=== PATIENT | female | born 1990 | race Caucasian/White ===

== ENCOUNTER 2017-02-06 07:54 | Inpatient (IN) | payer OTHER ==
[2017-01-29 14:14] VITALS: BMI 24.5
--- NOTE | 2017-01-30 11:59 | HP ---
Admitting History and Physical - Primary Care Physician PCP: Wilman Dent - Admission Chief Complaint: High risk for breast cancer History of Present Illness: 26 yo female presents as high risk for breast cancer secondary to personal h/o BRCA 1 positive status and family h/o breast cancer. Patient had a normal MRI done 01/10/2017. Patient is presenting for prophylactic mastectomy with reconstruction. History Source: Patient Limitations to Obtaining History: No Limitations - Past Medical History ...LMP: 01/08/17 Additional Past Medical History: Parietal venous malformation Right ocular ptosis (1995) - Past Surgical History Additional Past Surgical History: correction of right ocular ptosis () percutaneous endovascular microcatheterization (2014) - Smoking History Smoking history: Never smoked Have you smoked in the past 12 months: No - Alcohol/Substance Use Hx Alcohol Use: Yes (4/WEEK) Home Medications - Allergies Allergies/Adverse Reactions: Allergies Allergy/AdvReac Type Severity Reaction Status Date / Time No Known Drug Allergies Allergy Verified 01/29/17 14:02 - Home Medications Home Medications: Ambulatory Orders Fexofenadine HCl [Sofya Allergy] 60 mg PO DAILY 01/29/17 Multivitamins [Tab-A-Vit -] 1 tab PO DAILY 01/29/17 Norethindrone-Ethinyl Estrad [Alyacen] 1 each PO HS 01/29/17 Family Disease History - Family Disease History Family Disease History: CA: Sister (breast cancer and BRCA 1 pos), Other: Father (BRCA 1 pos) Other Family History: maternal GM (breast cancer 40s). paternal GM (breast cancer 60s) Review of Systems - Review of Systems Constitutional: reports: No Symptoms Cardiovascular: reports: No Symptoms Respiratory: reports: No Symptoms Physical Examination Constitutional: Yes: Well Nourished, Calm Breast(s): Yes: Other (C-cup breasts without skin changes or nipple discharge. No suspicious palpable masses or adenopathy noted bilaterally.) Problem List - Problems (1) At high risk for breast cancer Code(s): Z91.89 - [facility] PERSONAL RISK FACTORS, NOT ELSEWHERE CLASSIFIED (2) Family history of breast cancer Code(s): Z80.3 - FAMILY HISTORY OF MALIGNANT NEOPLASM OF BREAST (3) BRCA gene mutation positive in female Code(s): Z15.01 - GENETIC SUSCEPTIBILITY TO MALIGNANT NEOPLASM OF BREAST Z15.02 - GENETIC SUSCEPTIBILITY TO MALIGNANT NEOPLASM OF OVARY Z15.09 - GENETIC SUSCEPTIBILITY TO OTHER MALIGNANT NEOPLASM Assessment/Plan Plan Bilateral mastectomy with immediate reconstruction
[2017-02-06] MEDS ORDERED: PROPOFOL 20 ML ONE ×2 (08:37→10:37)
[2017-02-06] MEDS ORDERED: SUCCINYLCHOLINE CHLORIDE 200 MG/10 ML VIAL ONE (08:38)
[2017-02-06] MEDS ORDERED: MIDAZOLAM HCL 2 MG/2 ML SINGLE DOSE VIAL ONE ×2 (08:38→15:26)
[2017-02-06] MEDS ORDERED: ZOLPIDEM TARTRATE 5 MG TABLET PO PRN (09:21)
[2017-02-06] MEDS ORDERED: ONDANSETRON 4 MG/2 ML VIAL IVPB PRN (09:21)
[2017-02-06] MEDS ORDERED: ROPIVACAINE HCL 0.5% 30ML VIAL ONE (09:31)
[2017-02-06] MEDS ORDERED: DEXAMETHASONE SOD PHOSPHATE/PF 10 MG/ML SDV ONE (09:31)
[2017-02-06] MEDS ORDERED: [UNRECOGNIZED DRUG - REMARK] PO SCH (10:00)
[2017-02-06] MEDS ORDERED: ceFAZolin SODIUM 1 GM VIAL ONE ×2 (10:15→14:51)
[2017-02-06] MEDS ORDERED: ePHEDrine SULFATE 50 MG/1 ML AMPULE ONE (10:33)
[2017-02-06] MEDS ORDERED: ROCURONIUM BROMIDE 50 MG/5 ML VIAL ONE (10:39)
[2017-02-06] MEDS ORDERED: DEXAMETHASONE SOD PHOSPHATE 4 MG/1 ML VIAL ONE (10:40)
[2017-02-06] MEDS ORDERED: ONDANSETRON 4 MG/2 ML VIAL ONE ×3 (10:40→14:51)
[2017-02-06] MEDS ORDERED: HYDROmorphone HCL/PF 1 MG/ML VIAL (FOR PYXIS CHARGING ONLY) ONE (13:03)
[2017-02-06] MEDS ORDERED: LACTATED RINGERS SOLUTION 1,000 ML IV SCH (14:00)
[2017-02-06] MEDS ORDERED: HYDROmorphone HCL CARPU-JECT 1 MG/1 ML DISP.SYRIN IVPB PRN (14:07)
[2017-02-06] MEDS ORDERED: oxyCODONE HCL 5 MG TABLET PO PRN ×2 (14:09)
[2017-02-06] MEDS ORDERED: HYDROmorphone HCL CARPU-JECT 1 MG/1 ML DISP.SYRIN ONE (14:46)
--- NOTE | 2017-02-06 14:58 | OP ---
DATE OF OPERATION: 02/06/2017 PREOPERATIVE DIAGNOSIS: High risk for breast cancer, genetic predisposition, BRCA1 positive. POSTOPERATIVE DIAGNOSIS: High risk for breast cancer, genetic predisposition, BRCA1 positive. PROCEDURE PERFORMED: Bilateral total nipple sparing mastectomy through an inframammary approach with bilateral direct implant reconstruction with AlloDerm. ANESTHESIA: General endotracheal anesthesia. PRIMARY SURGEON: Roselyn Lomax MD LINOLEUM FLOOR LAYER: HARSHIL Bird. PRIMARY SURGEON FOR THE RECONSTRUCTION: Dr. Roselyn Song with his geriatric nurse assistant HARSHIL Dunbar. COMPLICATIONS: None. INDICATIONS: The patient is a 25-year-old nulliparous premenopausal white female of Ashkenazi Christian heritage. She has a strong family history with her sister who had breast cancer at age 31 and tested BRCA1 positive. Her father tested BRCA1 positive as well. She has a maternal grandmother who had breast cancer in her 40s and a paternal grandmother who had breast cancer in her 60s. The patient herself tested BRCA1 positive in 2014 with a BRCA1 187 deletion AG mutation. She was seen in consultation regarding risks, options and strategies and wanted to forward with risk reduction prophylactic mastectomy. She understood our technique of doing a nipple sparing mastectomy through an inframammary approach and understood the theoretical risk of leaving tissue underneath the nipple but understood that we do retroareolar biopsies at the time of surgery and if these show cancer we would remove the nipples. She understood the lack of any benefit for doing prophylactic sentinel lymph node biopsy. She was seen by Dr. Barajas preoperatively and understood the direct implant reconstruction with AlloDerm. All risks, complications of the procedure including risk of nipple loss, skin flap necrosis, hematoma and infection were explained to the patient. She had a full understanding. PROCEDURE IN DETAIL: The patient was brought in for the surgery on February 06, 2017. In the holding area site verification was made and informed consent was obtained. She was marked preoperatively by the plastic surgeon. She was then brought into the operating room and laid on the OR table in the supine position. Venodynes were placed on the lower extremities. She received 1 g Ancef prior to incision. Both breasts were then sterilely prepped and draped in the usual fashion. The left mastectomy was first approached. Inframammary incision were marked bilaterally about 9 cm in length in the inframammary fold. Incision was made and the skin edge was everted and the breast was retracted inferiorly using Midfield clamps. The skin flap was raised using the Peak radiofrequency device superiorly to the level of the clavicle and medially to the level of the sternum, laterally to the level of the latissimus and inferiorly below the level of the inframammary fold. The breast was then taken down off pectoralis major muscles from inferomedial to superolateral and completed removed intact. It was oriented with a long lateral and short superior suture and weighed to allow for appropriate cosmetic result. Hemostasis was achieved. The wound was copiously irrigated with warm sterile saline. Skin flaps were trimmed for good cosmetic result. A retroareolar biopsy was taken underneath the left nipple areola complex and sent for frozen section and came back negative so the left nipple was spared. At this point the right mastectomy was performed again through an inframammary incision. The skin edge was everted and the breast was retracted inferiorly using Midfield clamps. The skin flap was raised using the Peak radiofrequency device superiorly to the level of the clavicle and medially to the level of the sternum, laterally to the level of the latissimus and inferiorly below the level of the inframammary fold. The breast was then taken down off pectoralis major muscles from inferomedial to superolateral and completed removed intact. It was oriented with a long lateral and short superior suture and weighed to allow for appropriate cosmetic result. Hemostasis was achieved using electrocautery. Skin flaps were trimmed for good cosmetic result. A retroareolar biopsy was taken underneath the right nipple areola complex and sent for frozen section and came back negative so the right nipple was spared as well. Dr. Barajas then became the primary surgeon to perform the bilateral direct implant reconstructions which he placed in the subpectoral location. The AlloDerm was sutured in the inferolateral aspect of both pectoralis major muscles to allow for the direct implant reconstruction. Two Scott drains were placed around each implant and brought out through separate stab incisions on the lateral skin flap and secured in place using 3-0 nylon suture. All wound will be closed by plastic surgery and this will be dictated separately. The patient did have a preoperative pectoral nerve block bilaterally for postoperative pain control. The patient will be extubated at the end of the case and brought to the post-anesthesia care unit. The patient will be admitted postoperatively for pain management and wound management and her drains will be placed on GURINDER suction. Estimated blood loss for the mastectomy part of the procedure was about 50 mL. She was hemodynamically stable throughout. All sponge and needle counts were correct at this point in the case. Of note is that we did use the SPY skin perfusion device during the case and showed good skin perfusion of both skin flaps and nipple areolar complexes. ROSELYN LOMAX M.D. [id number]
--- NOTE | 2017-02-06 15:10 | OP ---
DATE OF OPERATION: 02/06/2017 SURGEON: Roselyn Song MD MOVING VAN DRIVER: Denae Knutson PA-C. PREOPERATIVE DIAGNOSIS: Bilateral acquired chest wall deformity status post bilateral mastectomy. POSTOPERATIVE DIAGNOSIS: Bilateral acquired chest wall deformity status post bilateral mastectomy. PROCEDURE: 1. Right immediate breast reconstruction utilizing immediate insertion of silicone breast implant and AlloDerm reconstruction. 2. Left immediate breast reconstruction utilizing immediate insertion of silicone breast implant and AlloDerm reconstruction. 3. Intravenous injection of indocyanine green dye and intraoperative diagnostic evaluation of non-coronary intraoperative fluorescein vascular angiography x 2. ANESTHESIA: GENERAL ANESTHESIOLOGIST: OPERATIVE PROCEDURE IN DETAIL: The patient was taken to the operating room. After induction of general anesthesia in the supine position, both arms were extended and padded. Venodyne boots were placed. The entire chest wall was painted with ChloraPrep solution over its entire extent, and sterile drapes were placed in the usual fashion. The markings, which had been made in the standing position preoperatively, were reoutlined with the patient's knowledge. Time-out procedure was performed. Attention was turned by Dr. Dent to the mastectomies. Bilateral inframammary incisions were made and Dr. Dent performed mastectomies. This will be dictated under separate cover. Upon completion of the mastectomies, the wounds were copiously irrigated and attention was turned to the right breast. A subpectoral dissection was begun on the right breast, superiorly from the second rib, medially to the sternal fibers, and down to the inframammary fold, elevating the pectoralis major muscle from its insertion. At this point, an 8.0 x 16.0 sheet of AlloDerm was brought into the field and sutured superiorly along the pectoralis major muscle after rehydration. This was carried along the lateral mammary fold and down the side of the breast reconstruction. At this point, AlloDerm Select tissue matrix RTU, contour medium perforated sheets were placed bilaterally and she had Natrelle Inspira cohesive implant was chosen style SCF 605 mL placed bilaterally. The left breast tissue removed was 410 gm, and the right breast approximately 435 gm. This implant was placed and then sutured with 3-0 Vicryl suture continued along the inframammary fold, completely covering the implant itself. The exact same procedure was carried out symmetrically on the opposite breast, also placing a Natrelle Inspira cohesive implant was chosen style SCF 605 mL implant in the same subpectoral pocket. Good symmetry was seen in the sitting position. After the implants were in place, the patient was injected with 10 mL of Isocyanide green dye and the Spy imaging system was brought into the field. The skin flowed to the right and left breasts and the nipple areolar complex, and the entire skin flaps were evaluated and seen to be viable with good blood flow. Two William-Castellon drains were brought out through separate stab wounds laterally. The Smart Infuser pump catheter was inserted medially and into the subpectoral position. Both wounds were closed symmetrically using 3-0 PDS suture on the deep tissue, 3-0 in a deep dermal fashion, and 4-0 in a subcuticular fashion. Both wounds were dressed sterilely with Mastisol and Steri-Strips with a surgical bra and a compression strap. The patient tolerated the procedure well. She was awakened, extubated and transferred to the recovery room in satisfactory condition. The clinical assistant professor was present during the entire portion of the operation and closure. ROSELYN SONG M.D. [id number]
[2017-02-06] MEDS ORDERED: HYDROmorphone *PCA* 10MG/50ML DISP.SYRIN PCA ONE (16:13)
[2017-02-06] MEDS ORDERED: MIDAZOLAM HCL 2 MG/2 ML SINGLE DOSE VIAL IVPUSH ONE (16:20)
[2017-02-06] MEDS ORDERED: HYDROmorphone *PCA* 10MG/50ML DISP.SYRIN PCA SCH (16:30)
[2017-02-06] MEDS: CEFAZOLIN 1 GM/D5W 50 ML IVPB SCH (21:38)
[2017-02-06] MEDS ORDERED: NORETHINDRONE ETHINYL ESTRAD PO SCH (22:00)
[2017-02-07] MEDS: CEFAZOLIN 1 GM/D5W 50 ML IVPB SCH ×4 (02:40→21:36)
[2017-02-07] MEDS ORDERED: HYDROmorphone *PCA* 10MG/50ML DISP.SYRIN PCA ONE (06:07)
--- NOTE | 2017-02-07 08:52 | PN ---
Progress Note, Physician Chief Complaint: BRCA positive S/P bilateral total nipple sparing mastectomies implant and alloderm reconstruction History of Present Illness: patient is OOb only using bathroom, using SURVEILLANCE DIRECTOR frequently due to pressure pain, more swelling on left breast, no nausea or vomiting - Current Medication List Current Medications: Active Medications Acetaminophen (Tylenol -) 650 mg PO Q4H PRN PRN Reason: FEVER Hydromorphone HCl (Dilaudid Deboner -) 0 mg SURVEILLANCE DIRECTOR SURVEILLANCE DIRECTOR HEMANT PRN Reason: Protocol Stop: 02/09/17 16:19 Cefazolin Sodium (Ancef 1 Gm Premixed Ivpb -) 50 mls @ 100 mls/hr IVPB Q6H-IV HEMANT Stop: 02/13/17 14:59 Last Admin: 02/07/17 02:40 Dose: 100 mls/hr Dextrose/Sodium Chloride (D5-1/2ns -) 1,000 mls @ 100 mls/hr IV ASDIR HEMANT Lactated Ringer's (Lactated Ringers Solution) 1,000 mls @ 75 mls/hr IV ASDIR HEMANT Loratadine (Claritin -) 10 mg PO DAILY HEMANT Non-Formulary Medication (Norethindrone-Ethinyl Estrad [Alyacen 7-7-7-28 Tablet] ) 1 each PO HS HEMANT Ondansetron HCl (Zofran Injection) 4 mg IVPB Q6H PRN PRN Reason: NAUSEA AND/OR VOMITING Last Admin: 02/06/17 14:50 Dose: 4 mg Zolpidem Tartrate (Ambien -) 5 mg PO HS PRN PRN Reason: Insomnia - Objective Vital Signs: Vital Signs Temperature 97.9 F 02/07/17 06:00 Pulse Rate 79 02/07/17 06:00 Respiratory Rate 18 02/07/17 06:00 Blood Pressure 96/58 02/07/17 06:00 O2 Sat by Pulse Oximetry (%) 100 02/07/17 06:00 Constitutional: Yes: Well Nourished Breast(s): Yes: Other (Bilateral flaps viable echymosis bilaterally and swelling left more than right incision intact steristrips in place,naye drain functioning) Problem List - Problems (1) BRCA gene mutation positive in female Code(s): Z15.01 - GENETIC SUSCEPTIBILITY TO MALIGNANT NEOPLASM OF BREAST Z15.02 - GENETIC SUSCEPTIBILITY TO MALIGNANT NEOPLASM OF OVARY Z15.09 - GENETIC SUSCEPTIBILITY TO OTHER MALIGNANT NEOPLASM Assessment/Plan continue OOB with assistance discontinue SURVEILLANCE DIRECTOR and start oxycodone after lunch spirometry Iv antibiotics
[2017-02-07] MEDS: LORATADINE 10 MG TABLET PO SCH (09:12)
[2017-02-07 09:56] LABS: MCH 29.6 pg (25.7-33.7); MCHC 33.5 g/dl (32.0-36.0); MEAN CELL VOLUME 88.3 fl (80-96); MEAN PLT VOLUME 8.9 fl (7.5-11.1); PLATELET COUNT 266 K/MM3 (134-434); WHITE BLOOD COUNT 11.8 K/mm3 (4.0-10.8)
--- NOTE | 2017-02-07 13:33 | PN ---
Progress Note (short form) - Note Progress Note: ANESTHESIA Post-op and FIRE PRODUCTION OPERATOR follow up: 26 yo female POD#1, s/p mastectomy for genetic susceptibility. Patient doing well. Pain adequately controlled with hydromorphone FIRE PRODUCTION OPERATOR. Encouraged patient to ambulate and use IS. Continue current care. Patient will transition to PO pain medications this afternoon.
[2017-02-07] MEDS ORDERED: traMADol HCL 50 MG TABLET PO PRN (13:54)
[2017-02-07] MEDS ORDERED: oxyCODONE HCL 5 MG TABLET PO PRN (13:55)
[2017-02-07] MEDS: diazePAM 2 MG TABLET PO SCH ×2 (15:04→21:35)
[2017-02-07] MEDS: traMADol HCL 50 MG TABLET PO SCH ×2 (17:00→23:28)
[2017-02-07] MEDS: ACETAMINOPHEN 325 MG TABLET (FP) PO PRN ×2 (19:22→23:29)
[2017-02-07] MEDS: oxyCODONE HCL 5 MG TABLET PO PRN ×2 (19:23→22:34)
[2017-02-08] MEDS: oxyCODONE HCL 5 MG TABLET PO PRN ×3 (02:25→10:17)
[2017-02-08] MEDS: CEFAZOLIN 1 GM/D5W 50 ML IVPB SCH ×2 (03:00→08:17)
[2017-02-08] MEDS: ACETAMINOPHEN 325 MG TABLET (FP) PO PRN ×2 (03:45→08:17)
[2017-02-08] MEDS: traMADol HCL 50 MG TABLET PO SCH ×2 (05:18→11:54)
[2017-02-08] MEDS: diazePAM 2 MG TABLET PO SCH (05:18)
[2017-02-08 07:05] VITALS: BP 95/57; PULSE 90; TEMP 98.6
[2017-02-08] MEDS: DEXTROSE 5%-0.45% SALINE 1,000 ML IV SCH ×2 (07:40→10:15)
[2017-02-08] MEDS: LORATADINE 10 MG TABLET PO SCH ×2 (07:41→10:17)
--- NOTE | 2017-02-08 11:37 | DS ---
Physical Examination Vital Signs: Vital Signs Temperature 98.6 F 02/08/17 06:00 Pulse Rate 90 02/08/17 06:00 Respiratory Rate 18 02/08/17 09:00 Blood Pressure 95/57 02/08/17 06:00 O2 Sat by Pulse Oximetry (%) 100 02/08/17 09:00 Constitutional: Yes: No Distress Wound/Incision: Yes: Other (Healing well with viable flaps and w/o signs of infection) Labs: CBC, BMP 02/07/17 07:00 Discharge Summary Reason For Visit: GENETIC SUSCEPTIBILITY Current Active Problems At high risk for breast cancer (Acute) BRCA gene mutation positive in female (Acute) Family history of breast cancer (Acute) Procedures: Principal: Bilateral NS-MTX with Implants Condition: Good - Instructions Diet, Activity, Other Instructions: Post Operative Instructions - [facility] We hope your recovery will be uneventful. For those of you who have been given general anesthesia, there is a possibility you might have some lightheadedness and possibly nausea. It is important that each patient, especially those who have had general anesthesia, follow these instructions, please: 1. Do NOT operate a motor vehicle for 24 hours. 2. Do NOT drink any alcoholic beverages for 24 hours. 3. Do NOT take any sedatives, narcotics, or tranquilizers for 24 hours unless specifically ordered by your surgeon. 4. Do NOT undertake any strenuous exercise or outside activity for 24 hours unless specifically permitted by your surgeon. 5. Eat light foods that are easy to digest. If you have any problems with nausea and vomiting, lie down and rest. If it continues, call your surgeon. 6. Call your surgeon AT ONCE if you have problems with: a. Bleeding b. Urinating c. Excessive pain or drainage d. Numbness If any problems occur, call your physician first. If you cannot reach him/her, call the Ambulatory Surgery Unit at [phone], or the Emergency Room at [phone]. Follow up with Drs. Dent / Ariela in 7 days. Medication: Vicodin E-S OR Percocet 1-2 tablets every 4-6 hrs as needed for 5-7 days. Wound Care: Keep wound dry and clean for 48 hours. You may remove the dressing after 48 hours and may shower. Keep steri-strips in place until follow-up appointment No heavy lifting or strenuous activities. BREAST SURGERY INSTRUCTIONS Andrew Detn M.D., FACS Wilman Dent M.D., FACS Woodrow Titus M.D., FACS 1. Please call the office at to make a follow up appointment with your surgeon. This number can be also used for any urgent issues you may have. 2. Call us immediately if any of the following occur: *Bleeding from the incision or drain site (a small amount is normal) *Fever or chills *Redness and worsening tenderness around the surgical site *Drainage of pus or fluid from the incision or drain site 3. You may change the surgical dressing two (2) days after your surgery, and may shower then. If you have drains, you may shower after they have been removed, until then take a sponge bath. 4. It is normal for there to be some bruising and tenderness around the surgical site, and the breast may also be firm in this area. 5. Please wear a comfortable bra (sports or surgical bra) all day and all night until your first follow-up visit with your surgeon. 6. The pain medicine you have been prescribed may make you constipated; make sure you drink plenty of water. You may use an over the counter laxative if needed. 7. You may resume your normal diet after surgery, although you may want to avoid rich foods for the first twenty-four (24) hours after surgery. Alcoholic drinks should be avoided while taking the prescribed pain medicine. 8. You may resume normal activities as long as there is no discomfort, but do not do upper body exercises until after your follow-up appointment. Do not lift anything heavier than a large phone book. You may resume driving once you have stopped taking the prescribed pain medicine and feel comfortable doing arm movements.WEAR BRA/NO SHOWER/EMPTY AND RECORD GURINDER OUTPUT TWICE DAILY [facility]: [facility] Phys[facility] () Disposition: HOME - Home Medications Comprehensive Discharge Medication List: Ambulatory Orders RX: Fexofenadine HCl [Sofya Allergy] 60 mg PO DAILY 01/29/17 RX: Multivitamins [Multivit ([facility] Formulary)] 1 tab PO DAILY 01/29/17 RX: Norethindrone-Ethinyl Estrad [Alyacen 7-7-7-28 Tablet] 1 each PO HS Oxycodone HCl/Acetaminophen [Percocet 5-325 mg Tablet] 1 - 2 tab PO Q6H PRN #30 tab MDD 6 02/07/17 RX: Cefadroxil 500 mg PO BID #20 capsule 02/07/17
--- NOTE | 2017-02-10 15:24 | PATH ---
Surgical Pathology Report Patient Name: KARINE MACIEL Med. Rec. #: [id number] /Age/Gender: 1990 (Age: 26) / F Account: [id number] Location: [facility] MED-SURG Taken: 02/06/2017 Received: 02/06/2017 Reported: 02/10/2017 Physicians: Wilman Dent M.D. Specimen(s) Received A: RIGHT RETROAREOLAR BIOPSY (FS) B: LEFT RETROAREOLAR BIOPSY (FS) C: RIGHT MASTECTOMY D: LEFT MASTECTOMY Clinical History BRCA 1+ Bilateral prophylactic Intraoperative Consult Diagnosis A. Right retroareolar biopsy, frozen section: Negative for malignancy. B. Left retroareolar biopsy, frozen section: Negative for malignancy. Cleo Rodríguez M.D., 02/06/17 Final Diagnosis A. RETROAREOLA, RIGHT, BIOPSY (FS): BENIGN BREAST TISSUE; NEGATIVE FOR MALIGNANCY. B. RETROAREOLA, LEFT, BIOPSY (FS): BENIGN BREAST TISSUE; NEGATIVE FOR MALIGNANCY. C. BREAST, RIGHT, NIPPLE-SPARING MASTECTOMY: BENIGN BREAST TISSUE SHOWING FIBROCYSTIC CHANGES. D. BREAST, LEFT, NIPPLE-SPARING MASTECTOMY: BENIGN BREAST TISSUE SHOWING FIBROCYSTIC CHANGES. Electronically Signed Renetta Rodríguez M.D. Gross Description A. Received fresh for frozen section labeled "right retroareolar biopsy," is a 1.8 x 0.4 x 0.2 cm portion of red and yellow soft tissue. Frozen section is performed on this specimen. The frozen section residue is entirely submitted in one cassette. B. Received fresh for frozen section labeled "Left retroareolar biopsy," is a 1.0 x 0.8 x 0.2 cm portion of red and yellow soft tissue. Frozen section is performed on the specimen. The frozen section residue is entirely submitted in one cassette. C. Received in formalin, labeled "right mastectomy," is a 437 gram, 17.5 x 14.0 x 4.3 cm. right mastectomy specimen with a short suture marking the superior aspect and a long suture marking the lateral aspect of the specimen, per the surgeon. There is no skin or nipple present. The deep margin is inked black and the anterior soft tissue margin is inked blue. The specimen is serially sectioned from lateral to medial. Sectioning reveals abundant dense, white, firm fibrocystic tissue. No definitive masses are identified. Computer Support Technician sections are submitted in 14 cassettes as follows: 1-2-upper outer quadrant; 3-4-lower outer quadrant; 5-9-upper inner quadrant; 10-12-lower inner quadrant; 13-anterior soft tissue margin; 14-deep margin. Time to formalin fixation: 55 minutes Total formalin fixation time: Approximately 29 hours. D. Received in formalin, labeled "left mastectomy," is a 357 gram, 13.4 x 12.0 x 4.2 cm. left mastectomy specimen with a short suture marking the superior aspect and a long suture marking the lateral aspect of the specimen, per the surgeon. There is no skin or nipple present. The deep margin is inked black and the anterior soft tissue margin is inked blue. The specimen is serially sectioned from medial to lateral. Sectioning reveals abundant dense, white, firm fibrocystic tissue. No definitive masses are identified. Computer Support Technician sections are submitted in 15 cassettes as follows: 1-6-upper inner quadrant; 7-9-lower inner quadrant; 10-11-upper outer quadrant; 12-13-lower outer quadrant; 14-anterior soft tissue margin; 15-deep margin. Time to formalin fixation: 60 minutes Total formalin fixation time: Approximately 29 hours. 02/07/201702/07/2017
== END 2017-02-08 12:10 | disposition home or self-care (01) | DRG 585 ==
LOC: FM/S 07:54
PROVIDERS: ADMIT Surgery Surgical Oncology; ATTEND Surgery Surgical Oncology
PROC: 0HUV0KZ Supplement Bilateral Breast with Nonautologous Tissue Substitute, Open Approach (ICD-10-PCS; 2017-02-06)
PROC: 0HTV0ZZ Resection of Bilateral Breast, Open Approach (ICD-10-PCS; principal; 2017-02-06 10:31)
PROC: 0HRV0JZ Replacement of Bilateral Breast with Synthetic Substitute, Open Approach (ICD-10-PCS; 2017-02-06 10:31)
DX: Z40.01 Encounter for prophylactic removal of breast (principal); Z80.3 Family history of malignant neoplasm of breast; Z15.01 Genetic susceptibility to malignant neoplasm of breast
CPT/HCPCS: 36415; 84703; 85027; 88307-TC; 88331-TC; 94760